=== PATIENT | male | born 1940 | race Caucasian/White ===

== ENCOUNTER 2024-07-31 09:23 | Outpatient (REF) | payer MEDICARE, OTHER, SELFPAY ==
--- NOTE | 2024-07-31 07:34 | SKI_PTH ---
PATIENT: Jorge Gray LOC: [facility] U#:[id number] AGE/SX: 83/M ROOM: RE07/31/[address]: Salbador Long MD : 1940 BED: DIS: 07/31/2024 SPEC #: [id number] RECD: 07/31/24 17:51 STATUS: SILVESTRE RETanisha #: [id number] SHAHID: 07/31/24 07:[address]: Salbador Long DEPT: Surgical Specimen RECD BY: Jocelyn Snow ENTERED: 07/31/24 17:54 SP TYPE: ENRIQUE SANCHEZ DR: Shirley Steward Tissues: 1 - SKIN BIOPSY(SHAVE/PUNCH) Procedures: SKIN LEVEL 4 Comments: [id number]
== END 2024-07-31 09:24 | disposition home or self-care (01) ==
LOC: LBN 09:23
PROVIDERS: PCP Nurse Practitioner Family; Visit Provider Otolaryngology
DX: D04.9 Carcinoma in situ of skin, unspecified (principal); L98.9 Disorder of the skin and subcutaneous tissue, unspecified
CPT/HCPCS: 88305